=== PATIENT | female | born 1985 | race Caucasian/White ===

== ENCOUNTER 2019-12-14 | Emergency (ER) | payer OTHER, MEDICAID ==
[~2019-12-14] VITALS: Ht 165.1 cm; Wt 104.3 kg
[2019-12-14] MEDS ORDERED: IBUPROFEN 800800 MG PO (00:41)
[2019-12-14] MEDS ORDERED: PENICILLIN V P500 MG PO (00:41)
[2019-12-14] MEDS ORDERED: HYDROCODON-ACE1 EAC7 PO (00:41)
[2019-12-14 01:20] VITALS: BP 176/114
== END 2019-12-14 01:20 | disposition home or self-care (01) ==
LOC: M.ERS
DX: K04.7 Periapical abscess without sinus (principal)

== ENCOUNTER 2020-05-20 07:01 | Emergency (ER) | payer OTHER ==
[~2020-05-20] VITALS: Ht 165.1 cm; Wt 124.7 kg
[~2020-05-20 07:01] MED LIST: HYDROCODON-ACE1 EAC7 PO; IBUPROFEN 800800 MG PO; PENICILLIN V P500 MG PO
[2020-05-20] MEDS ORDERED: PRAZOSIN 1 MG CA1 M1 PO (07:06)
[2020-05-20] MEDS ORDERED: NEURONTIN 300M300 M2 PO (07:06)
[2020-05-20] MEDS ORDERED: DESYREL150 MG PO (07:06)
[2020-05-20] MEDS ORDERED: DIPHENHIST50 MG PO (10:28)
[2020-05-20] MEDS ORDERED: EPIPEN 2-P0.3 MG/0.3 IM (10:28)
[2020-05-20] MEDS ORDERED: PREDNISONE50 MG PO (10:28)
[2020-05-20 10:36] VITALS: BP 149/91
== END 2020-05-20 10:36 | disposition home or self-care (01) ==
LOC: M.ERS 07:01
DX: L50.9 Urticaria, unspecified (principal); T50.995A Adverse effect of other drugs, medicaments and biological substances, initial encounter; I10 Essential (primary) hypertension; F17.210 Nicotine dependence, cigarettes, uncomplicated; Y92.89 Other specified places as the place of occurrence of the external cause

== ENCOUNTER 2020-05-21 20:19 | Observation (INO) | payer OTHER ==
[~2020-05-21] VITALS: Ht 165.1 cm; Wt 124.7 kg
[~2020-05-21 20:19] MED LIST changes: +DESYREL150 MG PO; +DIPHENHIST50 MG PO; +EPIPEN 2-P0.3 MG/0.3 IM; +NEURONTIN 300M300 M2 PO; +PRAZOSIN 1 MG CA1 M1 PO; +PREDNISONE50 MG PO
[2020-05-21 20:21] VITALS: BP 115/68
[2020-05-21 21:17] LABS: HEMATOCRIT 41.6 % (37.0-47.0); HEMOGLOBIN 13.3 gm/dL (12.0-15.0); MCH 25.3 pg (26.0-34.0); MCHC 32.1 g/dL (28.0-37.0); MCV 78.8 fL (80.0-100.0); MPV 9.7 fl. (7.2-11.1); NUCLEATED RBCS 0 /100WBC; PLATELET COUNT* 472 thou/uL (150-400); RBC 5.28 mil/uL (4.20-5.00); WBC 25.6 thou/uL (4.0-11.0)
[2020-05-21 21:21] LABS: CALCIUM 8.8 mg/dL (8.5-10.1); CREATININE 1.6 mg/dL (0.6-1.3); POTASSIUM 3.3 mmol/L (3.5-5.1)
[2020-05-21 21:26] LABS: ALBUMIN 3.3 g/dL (3.4-5.0); TOTAL BILIRUBIN 0.6 mg/dL (<0.1-1.0); TOTAL PROTEIN 6.4 g/dL (6.4-8.2)
[2020-05-21 21:27] VITALS: BP 115/68
[2020-05-21 21:37] LABS: ABSOLUTE LYMPHOCYTES 4.9 thou/uL (0.8-5.3); ABSOLUTE MONOCYTES 1.8 thou/uL (0.0-1.2); ABSOLUTE NEUTROPHILS 18.9 thou/uL (1.6-8.1)
[2020-05-21 21:38] LABS: PLATELET ESTIMATE INCREASED
[2020-05-21 22:00] VITALS: BP 165/106
[2020-05-22 02:03] VITALS: BP 139/69
[2020-05-22 04:34] VITALS: BP 155/81
--- NOTE | 2020-05-22 04:46 | NUR ---
Shift uneventful. Pt is aox4, running SR to s-tach on telemetry, respirations are even and unlabored on room air. Pt is medically stable at this time.
[2020-05-22] MEDS ORDERED: PREDNISONE50 MG PO (07:32)
[2020-05-22] MEDS ORDERED: EPIPEN 2-P0.3 MG/0.3 IM (07:32)
[2020-05-22 08:00] VITALS: BP 147/77
[2020-05-22 08:37] VITALS: BP 155/81
--- NOTE | 2020-05-22 09:53 | EKG ---
[place] [address] ELECTROCARDIOGRAM REPORT Name: CABRERA WYNNE [address] [id number] Admission: 05/21/20 Attend Phys: Jumana domínguez Sa Discharge: Date of : 83 Date of Service: 05/21/202045 Report #: [id number] THIS REPORT FOR: //name// [facility] ED Test Date: 2020-05-21 Test Time: 20:46:18 Pat Name: CABRERA WYNNE Department: Room: [facility] Gender: F Feed House Supervisor: MUSTAPHA : 1985 Requested By: Kilo Chand Order Number: [id number] MD: Solomon Roblero Measurements Intervals Rector Rate: 105 P: 72 NC: 148 QRS: 65 QRSD: 97 T: -24 QT: 351 QTc: 465 Interpretive Statements Sinus tachycardia poor r wave progression Borderline repolarization abnormality No previous ECG available for comparison Electronically Signed On 05-22-2020 9:53:38 CDT by Solomon Roblero [email or web address] <ELECTRONICALLY SIGNED> By: Solomon Roblero MD, [facility] 05/22/20 0953 45 45 Solomon Roblero MD, [facility] /EPI
== END 2020-05-22 13:34 | disposition home or self-care (01) ==
LOC: M.ERS 20:19 → M.TBA-ER 20:49 → M.2W 20:49
PROVIDERS: Physician Assistant; ADMIT Family Medicine; ATTEND Family Medicine
DX: T50.905A Adverse effect of unspecified drugs, medicaments and biological substances, initial encounter (principal); G47.00 Insomnia, unspecified; F41.1 Generalized anxiety disorder; E66.9 Obesity, unspecified; I12.9 Hypertensive chronic kidney disease with stage 1 through stage 4 chronic kidney disease, or unspecified chronic kidney disease; N18.2 Chronic kidney disease, stage 2 (mild); F17.210 Nicotine dependence, cigarettes, uncomplicated; Y92.89 Other specified places as the place of occurrence of the external cause

== ENCOUNTER 2020-05-22 22:53 | Emergency (ER) | payer OTHER ==
[~2020-05-22] VITALS: Ht 165.1 cm; Wt 124.7 kg
[2020-05-23 02:13] VITALS: BP 132/60
== END 2020-05-23 02:13 | disposition home or self-care (01) ==
LOC: M.ERS 22:53
DX: L50.9 Urticaria, unspecified (principal); T78.40XA Allergy, unspecified, initial encounter; L29.9 Pruritus, unspecified; I10 Essential (primary) hypertension; E66.01 Morbid (severe) obesity due to excess calories; F17.210 Nicotine dependence, cigarettes, uncomplicated; Z68.42 Body mass index [BMI] 45.0-49.9, adult; Z88.8 Allergy status to other drugs, medicaments and biological substances; X58.XXXA Exposure to other specified factors, initial encounter

== ENCOUNTER 2020-11-12 13:40 | Emergency (ER) | payer OTHER ==
[2020-11-13] MEDS ORDERED: BACTRIM DS TAB1 EACH PO (02:16)
[2020-11-13] MEDS ORDERED: MUPIROCIN1 GM TOP (02:16)
[2020-11-13] MEDS ORDERED: HYDROCODON-ACE1 EAC7 PO (02:16)
== END 2020-11-12 13:48 | disposition left against medical advice (07) ==
LOC: M.ERS 13:40
DX: Z53.21 Procedure and treatment not carried out due to patient leaving prior to being seen by health care provider (principal)

== ENCOUNTER 2020-11-13 01:32 | Emergency (ER) | payer OTHER ==
[~2020-11-13] VITALS: Ht 165.1 cm; Wt 158.8 kg
[2020-11-13] MEDS ORDERED: MUPIROCIN1 GM TOP (02:16)
[2020-11-13] MEDS ORDERED: HYDROCODON-ACE1 EAC7 PO (02:16)
[2020-11-13] MEDS ORDERED: BACTRIM DS TAB1 EACH PO (02:16)
[2020-11-13 02:38] VITALS: BP 152/90
== END 2020-11-13 02:38 | disposition home or self-care (01) ==
LOC: M.ERS 01:32
DX: L03.115 Cellulitis of right lower limb (principal); I10 Essential (primary) hypertension; E66.01 Morbid (severe) obesity due to excess calories; F17.210 Nicotine dependence, cigarettes, uncomplicated; Z88.8 Allergy status to other drugs, medicaments and biological substances